=== PATIENT | female | born 1955 | race Hispanic/Latino ===

== ENCOUNTER 2023-01-19 01:16 | Day surgery (SDC) | payer SELFPAY ==
[2023-01-19] MEDS ORDERED: Ondansetron PF 4 MG/2 ML Vial ONE ×2 (03:19→12:46)
[2023-01-19] MEDS ORDERED: Ketorolac Tromethamine 30 MG/ML VIAL ONE ×2 (03:19→09:22)
[2023-01-19 03:30] LABS: #Eosinphils 0.1 thou/uL (0.0-0.7); #Monocytes 0.4 thou/uL (0.11-0.59); #Neutrophils 4.2 thou/uL (1.40-6.50); %Basophils 0.5 % (0.0-1.0); %Eosinophils 1.2 % (0.0-10.0); %Lymphocytes 22.8 % (21.0-51.0); %Monocytes 6.3 % (0.0-10.0); Hematocrit 41.1 % (36.0-47.0); Hemoglobin 13.9 g/dL (12.0-16.0); Mean Corpuscular HGB CONC 33.8 g/dL (32.0-36.0); Mean Corpuscular Hemoglobin 33.8 pg (27.0-31.0); Platelet Count 302 10x3/uL (130-400); RBC Distribution Width 12.9 % (11.5-14.5); Red Blood Cell (RBC) Count 4.11 mill/uL (4.20-5.40)
[2023-01-19 03:40] LABS: ALT (SGPT) 890 U/L (8-55); AST (SGOT) 1225 U/L (5-34); Albumin 4.6 g/dL (3.4-4.8); Alkaline Phosphatase 195 U/L (40-110); Anion Gap 17 mmol/L (10-20); BUN (Urea Nitrogen) 17 mg/dL (9.8-20.1); Bilirubin, Total 2.1 mg/dL (0.2-1.2); Calc. Creatinine Clearance 0 mL/min (70-130); Calcium 9.6 mg/dL (7.8-10.44); Carbon Dioxide 25 mmol/L (23-31); Chloride 99 mmol/L (98-107); Estimated GFR 85; Globulin 3.2 g/dL (2.4-3.5); Glucose 146 mg/dL (80-115); Lipase 27 U/L (8-78); Magnesium 2.1 mg/dL (1.6-2.6); Potassium 4.2 mmol/L (3.5-5.1); Protein, Total 7.8 g/dL (5.8-8.1); Sodium 137 mmol/L (136-145)
[2023-01-19 04:00] LABS: Bacteria/HPF None Seen HPF (None Seen); Bilirubin Negative (Negative); Blood, Urine Negative (Negative); CAUTI Indications for Culture Pelvic or flank pain; Clarity Clear (Clear); Glucose, Urine (Dipstick) Normal (Negative); Ketone, Urine Negative (Negative); Leukocyte Negative Leu/uL (Negative); Nitrite Negative (Negative); Protein, Urine (Dipstick) Negative (Neg-Trace); RBC/HPF 0-3 HPF (0-3); Specific Gravity, Urine 1.013 (1.002-1.036); Squamous Epithelial 0-3 HPF (0-3); Urobilinogen Normal mg/dL (Less than 2); WBC/HPF 0-3 HPF (0-3)
[2023-01-19 04:01] LABS: Urine Culture Reflex No No
[2023-01-19] MEDS ORDERED: Morphine 4 MG/ML VIAL ONE (04:36)
[2023-01-19] MEDS ORDERED: Piperacillin/Tazobactam 3.375 GM VIAL ONE ×2 (07:16→07:20)
[2023-01-19] MEDS ORDERED: Piperacillin/Tazobactam 4.5 GM VIAL ONE (07:18)
[2023-01-19] MEDS ORDERED: Glucagon 1 MG/ML KIT IM PRN (09:45)
[2023-01-19] MEDS ORDERED: Dextrose 50% Abboject 50 ML SYRINGE IVP PRN (09:45)
[2023-01-19] MEDS ORDERED: Sodium Chloride 0.9% 1,000 ML IV SCH (09:45)
[2023-01-19] MEDS ORDERED: Ketorolac Tromethamine 30 MG/ML VIAL IVP SCH ×2 (09:45→15:00)
[2023-01-19] MEDS ORDERED: Dextrose 5% in Water 1,000 ML IV PRN (09:45)
[2023-01-19] MEDS ORDERED: HumaLOG 300 UNITS/3 ML VIAL SC PRN (09:45)
[2023-01-19] MEDS ORDERED: Iopamidol-370 76% 500 ML MDV (1 ML CHARGE) ONE (10:44)
[2023-01-19] MEDS ORDERED: Piperacillin/Tazobactam 3.375 GM in Sodium Chloride 0.9% 100 ML IVPB SCH (12:00)
[2023-01-19] MEDS ORDERED: Phenylephrine 10 MG/ML VIAL ONE (12:21)
[2023-01-19] MEDS ORDERED: fentaNYL 50 mcg/mL 1 mL Vial ONE ×2 (12:21→14:08)
[2023-01-19] MEDS ORDERED: Bupivacaine HCl 0.5%/Epinephrine 1:200,000/PF 30 ml Vial ONE (12:24)
[2023-01-19] MEDS ORDERED: Iopamidol 15 ML ONE (12:24)
[2023-01-19] MEDS ORDERED: Glucagon 1 MG/ML KIT ONE (12:25)
[2023-01-19] MEDS ORDERED: Rocuronium Bromide 10 MG/ML (10ML VIAL) ONE (12:46)
[2023-01-19] MEDS ORDERED: NEOSTIGMINE 3 MG/3 ML SYR 3 MG/3 ML SYRINGE ONE (12:46)
[2023-01-19] MEDS ORDERED: PROPOFOL 200 MG/20 ML VIAL ONE (12:46)
[2023-01-19] MEDS ORDERED: Glycopyrrolate 0.2 MG/ML 5 ML SYRINGE ONE (12:46)
[2023-01-19] MEDS ORDERED: Metoclopramide HCl 10 MG/2 ML VIAL ONE (12:46)
[2023-01-19] MEDS ORDERED: SUGAMMADEX SODIUM 200 MG/2 ML VIAL ONE (13:25)
[2023-01-19] MEDS ORDERED: Ondansetron HCl/PF 4 MG/2 ML Vial IVP PRN (13:36)
[2023-01-19] MEDS ORDERED: Promethazine HCl 25 MG/ML VIAL IM PRN (13:36)
== END 2023-01-19 15:45 | disposition home or self-care (01) ==
LOC: ERS 01:16 → SDC 11:03
PROVIDERS: ATTEND Emergency Medicine
PROC: 0FT44ZZ Resection of Gallbladder, Percutaneous Endoscopic Approach (ICD-10-PCS; principal; 2023-01-19)
DX: K80.12 Calculus of gallbladder with acute and chronic cholecystitis without obstruction (principal); R10.11 Right upper quadrant pain; E66.01 Morbid (severe) obesity due to excess calories; E11.9 Type 2 diabetes mellitus without complications; I10 Essential (primary) hypertension; E88.81 Metabolic syndrome and other insulin resistance; E88.89 Other specified metabolic disorders; Z79.899 Other long term (current) drug therapy
CPT/HCPCS: 74177; 76705; 80053; 81001; 83690; 83735; 85025; 88304; 93005; C1889; J1611; J1885; J2270; J2370; J2405; J2543; J2704; J2765; J3010; Q9967